=== PATIENT | female | born 1995 | race Caucasian/White ===

== ENCOUNTER 2022-05-04 17:51 | Emergency (ER) | payer OTHER, SELFPAY ==
--- NOTE | 2022-05-04 17:53 | ED.NAVMDI ---
HPI - Nausea/Vomiting/Diarrhea General Chief complaint: Nausea/Vomiting/Diarrhea Stated complaint: Throwing Up Time Seen by Provider: 05/04/22 17:53 Source: patient Mode of arrival: ambulatory Limitations: no limitations History of Present Illness HPI Narrative: Alida is a 26-year-old female patient presenting to clinic today with complaints of vomiting that began this morning. She reports she has vomited 4 times today. Last episode was during registration. She denies any nausea currently during the assessment. She currently takes control as her only medication she has been sexually abstinent and last menstrual period was 2 weeks ago. She denies any belly pain but did have a nosebleed during vomiting thing and then noted blood in her vomit. She contacted her primary care provider's office and they told her that she should seek treatment in the urgent care. Last bowel movement was approximately 2 hours ago and normal for the patient. Related Data Allergies Allergy/AdvReac Type Severity Reaction Status Date / Time No Known Allergies Allergy Verified 05/04/22 18:09 Review of Systems Review of Systems: Pertinent positives per HPI. Patient denies any fever, chills, rash, headache, visual changes, dizziness, cough, runny nose, sore throat, shortness of breath, chest pain, palpitations, diarrhea, constipation, abdominal pain, or any urinary issues. PMFSH Comments At the time of my signature, I reviewed and agree with the nursing past medical, surgical, social, and family history. There is no relevant family history pertinent to the patient complaint. Exam Narrative: General: Well-developed, well nourished, in no apparent distress Head: Normocephalic, atraumatic Eyes: Pupils equally round and reactive to light bilaterally, EOM intact, sclera and conjunctive clear, no discharge, lids normal Ears: TMs intact and clear, ear canals clear, no drainage, grossly hearing normal. Nose: Nares patent, clear neck discharge, mild inflammation, no sinus tenderness. No blood noted in her anterior or posterior turbinates bilaterally Mouth: Oropharynx without lesions or masses, good dentition, MMM. Neck: Supple, trachea midline, no enlargement of anterior or posterior cervical nodes, no thyroid masses or goiter palpable. Cardio: Regular rate and rhythm, s1 and s2 normal, no murmur appreciated. Resp: Clear to auscultation bilaterally anteriorly and posteriorly, no rhonchi, rales, wheezing or rubs Abdomen: Soft, pliable, bowel sounds present in all quadrants, non-tender to palpation, no organomegly, no CVAT tenderness. Course Course Emergency Course: Portions of this record may have been created with voice recognition software. Level of Care: Express Care Visit Vital Signs Vital signs: Vital signs reviewed MDM - Nausea/Vomiting/Diarrhea MDM Narrative Medical decision making narrative: At the time of visit patient was resting comfortably on the exam table. Patient epistaxis has resolved and there is no sign of blood in her throat or nose. I will give her a prescription for some Zofran for nausea/vomiting. Supportive measures were discussed with the patient she voiced understanding of discharge instructions and agrees to the treatment plan Differential Diagnosis Differential diagnosis: Likely other (Nausea and vomiting, epistaxis) Discharge Plan Discharge Clinical Impression: Epistaxis Nausea & vomiting Qualifiers: Vomiting type: unspecified Qualified Code(s): R11.2 - Nausea with vomiting, unspecified Patient Disposition: Home, Self-Care Condition: Stable Instructions: Antibiotic Form, Nosebleed (ED), Acute Nausea and Vomiting (ED) Additional Instructions: Increase fluids and stay well-hydrated Clear liquids x24 hours then advance as tolerated Zofran as needed for nausea/vomiting Tylenol as needed for any pain or fever Follow-up with your PCP in 3 to 5 days if symptoms persist or sooner if they w
[2022-05-04 18:05] VITALS: BP 137/86; PULSE 63; RESP 16; TEMP 36.9; O2SAT 100
== END 2022-05-04 18:16 | disposition home or self-care (01) ==
LOC: EXPCOLL 18:00
PROVIDERS: Emergency Provider Nurse Practitioner Family
DX: R04.0 Epistaxis (principal); R11.2 Nausea with vomiting, unspecified
CPT/HCPCS: 99203; G0463